=== PATIENT | male | born 1985 | race Caucasian/White ===

== ENCOUNTER 2024-08-11 10:53 | Emergency (ER) | payer OTHER, SELFPAY ==
--- NOTE | 2024-08-11 10:45 | RT.EKG_ITS ---
APPROVED REPORT Exam: Resting ECG Reason for Exam: chest pain Patient Location: E HR:84 bpm ECG Measurements Heart Rate 84 AXIS OH 146 P 14 QRSd 85 QRS -37 QT 361 T -21 QTc 428 Conclusion Sinus rhythm...normal P axis, V-rate 60- 99 Left axis deviation...QRS axis (-30,-90) Borderline T abnormalities, diffuse leads...T flat/neg No STEMI
--- NOTE | 2024-08-11 10:56 | ED.GENADUL_ITS ---
Discharge Plan Disposition Patient Disposition: Home Discharge Details Clinical Impression: Chest pain, unspecified, Hypomagnesemia, Hypercalcemia, Elevated blood pressure reading with diagnosis of hypertension Primary Care Provider: Unknown,Unknown ED Provider: Joby Alfonso Home Meds and New Rx's Prescriptions: No Action No Known Home Meds Discharge Instructions Additional Instructions: You are seen in the emergency department for chest pain. Your blood work showed no sign of any heart attack. As we discussed if your pain worsens or if you pass out or begin sweating when you are having chest pain please return to the emergency department. You had some mild lab abnormalities. Your magnesium was noted to be slightly low for which you received oral repletion. Your calcium was noted to be slightly high. Your blood pressure was also noted to be slightly high. Please follow-up with your primary care provider. For your pain please take medications as follows: 1. Take acetaminophen (Tylenol), 1,000 mg (two 500 mg tabs) every 6 hours Discharge Data Discharge Date/Time-TO BE ENTERED AT DEPARTURE: 08/11/24 12:08 HPI General Date/Time Provider Initiated Documentation: 08/11/24 10:54 . HPI Narrative: MDM This is an overall very well-appearing normothermic and not tachycardic 39-year-old male with chest pain for the past several days for which he will undergo troponin testing in the setting of his nonischemic ECG. No pain or proportion to suggest necrotizing soft tissue infection. No right upper quadrant pain nor tenderness nor postprandial symptoms to suggest increased risk for acute cholecystitis so I did not feel the patient required a right upper quadrant ultrasound. No shortness of breath and patient is PERC negative so I did not send a D-dimer. Equal breath sounds and no trauma so doubt pneumot horax. Patient is not hypotensive nor dialysis patient making my suspicion low for pericardial tamponade. No recent emesis and no crepitance to suggest increased risk for esophageal rupture. No rash to chest to suggest zoster. No tearing quality to suggest aortic dissection. The patient had an undetectable troponin so given the duration of time since his symptoms began will discharging with PCP follow-up. Portable chest x-ray with no acute cardiopulmonary process. Labs were notable for very mild hypomagnesemia for which patient received oral repletion. He also had very mild hypercalcemia. His vitals were notable for elevated blood pressure. I advised patient follow-up with primary care provider. We also discussed he stated return to the emergency department if he developed abdominal pain if you develop nausea or vomiting or if he developed associated with sweating or any episodes of syncope. He understood his return indications and was discharged with empiric trial of expectant outpatient management. HEART SCORE Chest pain Diagnostic Protocol: [-History/Physical/Gestalt: Slightly Suspicious (0)] [- EKG: Nonspecific repolarization (+1)] [-AGE: less than 45 (0)] [-RISK FACTORS: No known risk factors (0)] [-TROPONIN: <= normal limit (0)] - TOTAL SCORE: 1 - Risk Factors: DM, current or recent smoker, HTN, HLD, family hx of CAD, obesity - INTERPRETATION: With a total score of 3 or less, risk of major cardiac event within six weeks 1.7%, likely lower with two negative troponins. [I explained to the patient that the risk of subsequent major cardiac event within 1 month is not 0, however risk predicted to be less than 2%. Patient verbalized understanding, accepts this risk and shared and the decision for discharge with PCP follow-up for further evaluation and management. They understand to return to the ED immediately with any worsening symptoms, new symptoms or other concerns.] Diagnostic interpretations performed by me: Per my independent interpretation chest x-ray shows: Per my independent interpretation EKG shows: Narrow complex normal sinus rhythm rate 84. Left axis deviation no signs of LVH based on voltage criteria. Left lateral T wave inversions. Inferior T wave inversions. No ST segment abnormalities. No prior for comparison. No acute injury pattern. ]Medications: N/A HPI This is a 39-year-old male arrived to the emergency department via private vehicle in setting of chest pain. Patient notes his pain began 2 days ago. It has been intermittent. He says it radiates his left shoulder and back. He has been nauseous but has not been vomiting. He reports a history of heartburn for which she took Tums and Pepcid. He denies routine tobacco ethanol and illicits. No family history of coronary artery disease. No personal history of coronary artery disease hypertension hyperlipidemia nor diabetes. Patient endorses upper chest tingling that extends into his back and his left bicep. No recent falls. He has been staying locally had a second residence he owns and Exam General: Well-appearing in no acute distress speaking in complete sentences. Head: Normocephalic, atraumatic. Eye: Extraocular eye movements intact. No conjunctival injection. No scleral icterus. Ear, nose, mouth, throat: Grossly normal inspection. Normal voice, handling secretions normally. Neck: Trachea midline. Cardiovascular: Well-perfused distal extremities. Regular rate and rhythm. Respiratory: Nonlabored respiration. Clear lungs bilaterally. Gastrointestinal: Nondistended abdomen. Soft nontender. Musculoskeletal: No edema. Moving all 4 extremities spontaneously. Skin: Normal for age and race, grossly normal temperature and turgor. No acute rash. Neurologic: Alert and appropriate, no apparent acute deficits. Psychiatric: Mood and manner are appropriate. Grooming and personal hygiene are appropriate. Related Data Home Medications ?Medication ?Instructions ?Recorded ?Confirmed Unknown [No Known Home Meds] 08/11/24 08/11/24 Allergies Allergy/AdvReac Type Severity Reaction Status Date / Time No Known Allergies Allergy Unverified 08/11/24 12:08 Medical Decision Making Quality:SDOH Health Related Social Needs: No Data to Display PFSH All Active Problems (Updated 08/11/24 @ 12:03 by Joby Alfonso MD) Elevated blood pressure reading with diagnosis of hypertension (Acute) Hypercalcemia (Acute) Hypomagnesemia (Acute) Chest pain, unspecified (Acute) Social History Smoking/Tobacco Use Status: Never Smoking risk assessment performed?: Yes Alcohol Intake: current Alcohol Intake frequency: a few times a week Alcohol type: beer Substance use type: does not use
[2024-08-11 10:57] VITALS: BP 154/84; PULSE 72; RESP 16; TEMP 36.7; O2SAT 97
--- NOTE | 2024-08-11 11:00 | DI.RAD_ITS ---
Exam(s) XR PORTABLE CHEST AP EXAM: XR PORTABLE CHEST AP CLINICAL HISTORY: Chest pain TECHNIQUE: 2D digital imaging was performed. COMPARISON: No exams were available for comparison FINDINGS: LUNGS: Clear. No pleural abnormality seen. HEART: Normal size. AORTA: Normal diameter. BONES: Unremarkable for age. Soft tissues: Unremarkable. IMPRESSION: No acute findings. DATA REPOSITORY: RADIATION DOSE DELIVERED:
[2024-08-11 11:06] VITALS: RESP 16
[2024-08-11 11:08] VITALS: BP 158/96; PULSE 65; PULSE 72; RESP 13; O2SAT 95
[2024-08-11 11:20] LABS: Abs Immature Grans 0.01 10^3/uL (0.0-0.06); Absolute Basophil Count 0.04 10^3/uL (0.0-0.2); Absolute Eosinophil Count 0.21 10^3/uL (0.0-0.7); Absolute Lymphocyte Count 1.83 10^3/uL (1.2-3.4); Absolute Monocyte Count 0.47 10^3/uL (0.1-0.8); Absolute Neutrophil Count 4.15 10^3/uL (1.2-6.7); Basophils % 0.6 %; Eosinophils % 3.1 %; HCT 48.4 % (40.0-50.0); HGB 16.4 g/dL (13.5-17.5); Immature Grans % 0.1 %; Lymphocytes % 27.3 %; MCH 30.3 pg (27.0-33.0); MCHC 33.9 % (32.0-36.0); MCV 89 fL (80-95); MPV 10.6 fL (8.0-11.0); Neutrophils % 61.9 %; Platelet Count 254 10^3/uL (130-400); RBC 5.42 10^6/uL (4.36-5.78); RDW 12.6 % (11.8-14.1); RDW-SD 41.5 fL; WBC 6.71 10^3/uL (4.4-10.8)
[2024-08-11 11:40] LABS: ALT 88 U/L (16-63); AST 29 U/L (15-37); Albumin 4.5 g/dL (3.4-5.0); Alkaline Phosphatase 99 U/L (46-116); Anion Gap 7.6 mmol/L (3-11); BUN 11 mg/dL (7-18); Bilirubin, Total 1.02 mg/dL (0.2-1.0); CO2 31.4 mmol/L (21.0-32.0); CREATININE 1.1 mg/dL (0.70-1.30); Calcium 10.6 mg/dL (8.5-10.1); Chloride 103 mmol/L (98-107); Estimated GFR 86.49 (mL/min/1.73m2); Glucose 91 mg/dL (74-106); Lipase 52 U/L (<78); Magnesium 1.6 mg/dL (1.8-2.4); Potassium 4.1 mmol/L (3.5-5.1); Sodium 142 mmol/L (136-145); Total Protein 8.1 g/dL (6.4-8.2)
[2024-08-11 11:44] LABS: Troponin I < 4 ng/L (<or=76)
--- NOTE | 2024-08-11 11:52 | DI.VRAD_ITS ---
PROCEDURE INFORMATION: Exam: XR Chest Exam date and time: 08/11/2024 11:36 AM Age: 39 years old Clinical indication: Pain; Chest pressure TECHNIQUE: Imaging protocol: Radiologic exam of the chest. Views: 1 view. COMPARISON: No relevant prior studies available. FINDINGS: Lungs: Unremarkable. No consolidation. Pleural spaces: Unremarkable. No pleural effusion. No pneumothorax. Heart/Mediastinum: Unremarkable. No cardiomegaly. Bones/joints: Unremarkable. IMPRESSION: No acute cardiopulmonary process. Dictated and Authenticated by: Dylan Curry MD. Orderin Naty Hemphill MD
[2024-08-11] MEDS: Magnesium Oxide 400 MG TAB PO (12:01)
[2024-08-11 12:04] VITALS: BP 150/106; PULSE 62; PULSE 66; RESP 14; O2SAT 97
== END 2024-08-11 12:08 | disposition home or self-care (01) ==
PROVIDERS: Emergency Provider Emergency Medicine
DX: R07.9 Chest pain, unspecified (principal); R11.0 Nausea; E83.42 Hypomagnesemia; E83.52 Hypercalcemia; R03.0 Elevated blood-pressure reading, without diagnosis of hypertension
CPT/HCPCS: 36415; 80053; 83690; 93005; 99284; 71045; 83735; 84484; 85025; 93010